=== PATIENT | male | born 1950 | race Two or more races ===

== ENCOUNTER 2020-10-22 11:22 | Emergency (ER) | payer MEDICARE, OTHER ==
[~2020-10-22] VITALS: Ht 172.7 cm; Wt 72.1 kg
--- NOTE | 2020-10-22 11:22 | NUR ---
PT BIB , DIZZINESS, NAUSEA STARTED ONE HOUR AGO. PT IS AAOX4, NOT IN RESPIRATORY DISTRESS, V/S STABLE, KEPT RESTED AND COMFORTABLE. WILL CONTINUE TO MONITOR.
--- NOTE | 2020-10-22 11:31 | NUR ---
SEEN AND EXAMINED BY .
[2020-10-22] MEDS ORDERED: ONDANSETRON HCL/PF 4 MG/2 ML VIAL ONE (11:37)
[2020-10-22] MEDS ORDERED: MECLIZINE HCL 25 MG TABLET ONE (11:37)
--- NOTE | 2020-10-22 11:40 | NUR ---
IV LINE ESTABLISHED BLOOD DRAWN AND SENT TO LAB.
[2020-10-22] MEDS: IV NS 0.9% 1,000 ML IV ONE (11:53)
[2020-10-22] MEDS: MECLIZINE HCL 12.5 MG TABLET PO ONE (11:54)
[2020-10-22] MEDS: ONDANSETRON HCL/PF 4 MG/2 ML VIAL IV ONE (11:54)
--- NOTE | 2020-10-22 12:13 | NUR ---
PT IS WHEELED TO CT SCAN VIA [facility].
[2020-10-22 12:38] LABS: BASOPHILS % (AUTO) 0.5 % (0.0-2.0); EOSINOPHILS % (AUTO) 2.1 % (0.0-6.0); HEMATOCRIT 42 % (39-51); HEMOGLOBIN 14.4 g/dL (13.5-17.5); LYMPHOCYTES # (AUTO) 3.3 /CMM (0.8-4.8); LYMPHOCYTES % (AUTO) 47.2 % (20.0-44.0); MEAN CORPUSCULAR HGB CONC 34 g/dl (31.0-36.0); MEAN CORPUSCULAR VOLUME 90 fL (80-96); MONOCYTES # (AUTO) 0.5 /CMM (0.1-1.30); MONOCYTES % (AUTO) 7.7 % (2.0-12.0); NEUTROPHILS % (AUTO) 42.5 % (43.0-81.0); PLATELET COUNT (AUTO) 247 /CMM (150-450); RED BLOOD CELL COUNT(AUTO) 4.68 MIL/uL (4.5-6.0); WHITE BLOOD COUNT (AUTO) 6.9 K/uL (4.3-11.0)
[2020-10-22 12:54] LABS: ALANINE AMINOTRANSFERASE 19 U/L (12-78); ALBUMIN 4.4 g/dL (3.4-5.0); ALKALINE PHOSPHATASE 88 U/L (46-116); ASPARTATE AMINOTRANSFERASE 15 U/L (15-37); BILIRUBIN,TOTAL 0.6 mg/dL (0.2-1.0); CALCIUM, SERUM 9.6 mg/dL (8.5-10.1); CARBON DIOXIDE 27 mmol/L (21-32); CHLORIDE 102 mmol/L (98-107); GLUCOSE 154 mg/dL (74-106); LIPASE 60 U/L (73-393); POTASSIUM 3.9 mmol/L (3.5-5.1); SODIUM SERUM 142 mmol/L (136-145); TOTAL PROTEIN, SERUM 8.3 g/dL (6.4-8.2); UREA NITROGEN, BLOOD 16 mg/dL (7-18)
[2020-10-22] MEDS ORDERED: ONDA4TAB5 PO (14:03)
[2020-10-22] MEDS ORDERED: MECL-159 PO (14:03)
[2020-10-22 14:10] VITALS: BP 133/78
--- NOTE | 2020-10-22 14:10 | NUR ---
IV removed. Catheter intact and site benign. Pressure and 4x4 applied to site. No bleeding noted. Patient discharged to home in stable condition. Written and verbal after care instructions given. Patient verbalizes understanding of instruction.
== END 2020-10-22 14:11 | disposition home or self-care (01) ==
LOC: ER 11:22
DX: R42 Dizziness and giddiness (principal); R11.2 Nausea with vomiting, unspecified; I10 Essential (primary) hypertension; I25.10 Atherosclerotic heart disease of native coronary artery without angina pectoris; Z95.818 Presence of other cardiac implants and grafts
CPT/HCPCS: 36415; 70450; 80053; 83690; 84484; 85025; 93005; 96361; 96374; 99285; J2405; J7030; J8597

== ENCOUNTER 2021-10-17 10:56 | Emergency (ER) | payer MEDICARE, OTHER ==
[~2021-10-17] VITALS: Ht 167.6 cm; Wt 77.1 kg
[~2021-10-17 10:56] MED LIST: MECL-159 PO; ONDA4TAB5 PO
--- NOTE | 2021-10-17 11:09 | NUR ---
BIB FAMILY C/P BACK PAIN X3 DAYS, BECAME WORSE TODAY. PT DENIES HAVING ANY INJURY. VITALS ARE WITHIN NORMAL LIMITS. AWAITING MD CAI.
[2021-10-17] MEDS ORDERED: KETOROLAC TROMETHAMINE 15 MG/ML VIAL ONE (11:44)
[2021-10-17] MEDS ORDERED: ACETAMINOPHEN ES 500 MG TABLET ONE (11:45)
[2021-10-17] MEDS ORDERED: KETOROLAC TROMETHAMINE INJ 30 MG/ML VIAL IM ONE (12:00)
[2021-10-17] MEDS ORDERED: ACETAMINOPHEN ES 500 MG TABLET PO ONE (12:00)
--- NOTE | 2021-10-17 12:32 | NUR ---
PT BACK FROM X RAY VIA WHEELCHAIR
[2021-10-17 13:20] VITALS: BP 127/62
--- NOTE | 2021-10-17 13:20 | NUR ---
Patient discharged to home in stable condition. Written and verbal after care instructions given. Patient verbalizes understanding of instruction.
== END 2021-10-17 13:21 | disposition home or self-care (01) ==
LOC: ER 10:56
DX: M54.41 Lumbago with sciatica, right side (principal); I10 Essential (primary) hypertension; Z79.899 Other long term (current) drug therapy
CPT/HCPCS: 72110; 96372; 99283; J1885

== ENCOUNTER 2023-03-12 07:07 | Inpatient (IN) | payer MEDICARE, OTHER ==
[~2023-03-12] VITALS: Ht 172.7 cm; Wt 66.7 kg
[2023-03-12 07:44] LABS: BASOPHILS % (AUTO) 0.3 % (0.0-2.0); EOSINOPHILS # (AUTO) 0.1 K/uL (0.0-0.7); EOSINOPHILS % (AUTO) 1.2 % (0.0-6.0); HEMATOCRIT 40 % (39-51); HEMOGLOBIN 13.4 g/dL (13.5-17.5); LYMPHOCYTES # (AUTO) 1.6 K/uL (0.8-4.8); LYMPHOCYTES % (AUTO) 23.6 % (20.0-44.0); MEAN CORPUSCULAR HEMOGLOBIN 31 PG (26.0-33.0); MEAN CORPUSCULAR HGB CONC 34 g/dl (31.0-36.0); MEAN CORPUSCULAR VOLUME 91 fL (80-96); MONOCYTES # (AUTO) 0.6 K/uL (0.1-1.30); MONOCYTES % (AUTO) 8.8 % (2.0-12.0); NEUTROPHILS # (AUTO) 4.5 K/uL (1.8-8.9); NEUTROPHILS % (AUTO) 66.1 % (43.0-81.0); PLATELET COUNT (AUTO) 234 K/uL (150-450); RED BLOOD CELL COUNT(AUTO) 4.32 MIL/uL (4.5-6.0); WHITE BLOOD COUNT (AUTO) 6.8 K/uL (4.3-11.0)
[2023-03-12] MEDS ORDERED: HYDROCODONE/APAP 5/325MG TABLET ONE ×2 (07:46→10:57)
[2023-03-12] MEDS ORDERED: HYDROCODONE/APAP 5/325MG TABLET PO ONE ×2 (08:00→11:00)
[2023-03-12 08:01] LABS: INR 1.1 (0.91-1.10); PARTIAL THROMBOPLASTIN TIME 25.6 SEC (24.3-34.3); PROTHROMBIN TIME 11.6 SECS (9.2-11.1)
[2023-03-12 08:22] LABS: ALANINE AMINOTRANSFERASE 13 U/L (12-78); ALBUMIN 3.9 g/dL (3.4-5.0); ALKALINE PHOSPHATASE 65 U/L (46-116); ASPARTATE AMINOTRANSFERASE 15 U/L (15-37); BILIRUBIN,DIRECT 0.2 mg/dL (0.0-0.2); BILIRUBIN,TOTAL 0.8 mg/dL (0.2-1.0); CALCIUM, SERUM 9.2 mg/dL (8.5-10.1); CARBON DIOXIDE 25 mmol/L (21-32); CHLORIDE 103 mmol/L (98-107); CREATININE 0.9 mg/dL (0.6-1.3); GLUCOSE 140 mg/dL (74-106); POTASSIUM 3.6 mmol/L (3.5-5.1); SODIUM SERUM 138 mmol/L (136-145); TOTAL PROTEIN, SERUM 7.4 g/dL (6.4-8.2); UREA NITROGEN, BLOOD 15 mg/dL (7-18)
[2023-03-12 08:39] LABS: APPEARANCE,URINE CLEAR (CLEAR); BILIRUBIN,URINE NEGATIVE (NEGATIVE); BLOOD, URINE NEGATIVE Ery/uL (NEGATIVE); COLOR,URINE YELLOW (YELLOW); KETONES,URINE NEGATIVE (NEGATIVE); LEUKOCYTE ESTERASE ,URINE NEGATIVE (NEGATIVE); NITRITE, URINE NEGATIVE (NEGATIVE); PH,URINE 6.5 (5.0-8.0); PROTEIN,URINE NEGATIVE (NEGATIVE); UGLUCOSE NEGATIVE (NEGATIVE); UROBILINOGEN,URINE 0.2 EU/dL (0.2)
[2023-03-12] MEDS ORDERED: ASPI-1420 PO (09:23)
[2023-03-12] MEDS ORDERED: CARV3.122 PO (09:23)
[2023-03-12] MEDS ORDERED: BENA40TA8 PO (09:23)
[2023-03-12] MEDS ORDERED: ATOR20TA PO (09:23)
[2023-03-12] MEDS ORDERED: CARB1TAB21 PO (09:23)
[2023-03-12] MEDS ORDERED: LIFI1DRO4 EACHEYE (09:23)
[2023-03-12] MEDS ORDERED: GABA-532 PO (09:23)
[2023-03-12] MEDS ORDERED: OMEG1CAP PO (09:23)
[2023-03-12] MEDS ORDERED: AMLO5TAB4 PO (09:23)
[2023-03-12] MEDS ORDERED: CYAN100T9 PO (09:23)
[2023-03-12 12:00] VITALS: BP 121/73; TEMP 97.7; O2SAT 95
[2023-03-12] MEDS ORDERED: ONDANSETRON HCL/PF 4 MG/2 ML VIAL IVP PRN (13:30)
[2023-03-12] MEDS: ACETAMINOPHEN 325 MG TABLET PO PRN (13:52)
[2023-03-12] MEDS: CARBIDOPA/LEVODOPA 25/100 MG 1 UDTAB PO SCH ×2 (13:58→16:28)
[2023-03-12] MEDS: ENOXAPARIN SODIUM 40 MG/0.4 ML DISP.SYRIN SQ SCH (13:58)
[2023-03-12] MEDS: LIDOCAINE 5% (PATCH) 1 EA PATCH TP SCH (14:21)
[2023-03-12 16:00] VITALS: BP 128/66; TEMP 98.7; O2SAT 98
[2023-03-12] MEDS: CARVEDILOL 3.125 MG TABLET PO SCH (16:28)
[2023-03-12] MEDS: POLYVINYL ALCOHOL 15 ML BOTTLE EACHEYE SCH (16:32)
[2023-03-12] MEDS ORDERED: GABAPENTIN 300 MG CAPSULE PO ONE (19:30)
[2023-03-12 20:00] VITALS: BP 126/61; TEMP 97.5; O2SAT 97
[2023-03-12] MEDS ORDERED: GABAPENTIN 100 MG CAPSULE PO SCH (22:00)
[2023-03-12] MEDS ORDERED: ATORVASTATIN 10 MG TABLET PO SCH (22:00)
[2023-03-12] MEDS ORDERED: ZOLPIDEM TARTRATE 5 MG TABLET PO PRN (22:00)
[2023-03-13] VITALS: BP 137/69; TEMP 98.3; O2SAT 97
[2023-03-13 04:00] VITALS: BP 128/67; TEMP 98.1; O2SAT 96
[2023-03-13 06:31] LABS: CALCIUM, SERUM 9.4 mg/dL (8.5-10.1); CARBON DIOXIDE 26 mmol/L (21-32); CHLORIDE 103 mmol/L (98-107); CHOLESTEROL 134 mg/dL (<200); CREATININE 0.8 mg/dL (0.6-1.3); GLUCOSE 98 mg/dL (74-106); HDL CHOLESTEROL 54 mg/dL (40-60); LDL 72 mg/dL (0-99); MAGNESIUM 2.2 mg/dL (1.8-2.4); PHOSPHORUS 3.6 mg/dL (2.5-4.9); POTASSIUM 3.8 mmol/L (3.5-5.1); SODIUM SERUM 138 mmol/L (136-145); TRIGLYCERIDES 76 mg/dL (30-150); UREA NITROGEN, BLOOD 16 mg/dL (7-18)
[2023-03-13 06:34] LABS: BASOPHILS % (AUTO) 0.4 % (0.0-2.0); EOSINOPHILS # (AUTO) 0.1 K/uL (0.0-0.7); EOSINOPHILS % (AUTO) 1.5 % (0.0-6.0); HEMATOCRIT 41 % (39-51); HEMOGLOBIN 13.7 g/dL (13.5-17.5); LYMPHOCYTES # (AUTO) 2.4 K/uL (0.8-4.8); LYMPHOCYTES % (AUTO) 39.5 % (20.0-44.0); MEAN CORPUSCULAR HEMOGLOBIN 31 PG (26.0-33.0); MEAN CORPUSCULAR HGB CONC 34 g/dl (31.0-36.0); MEAN CORPUSCULAR VOLUME 91 fL (80-96); MONOCYTES # (AUTO) 0.7 K/uL (0.1-1.30); NEUTROPHILS # (AUTO) 2.9 K/uL (1.8-8.9); NEUTROPHILS % (AUTO) 46.6 % (43.0-81.0); PLATELET COUNT (AUTO) 221 K/uL (150-450); RED BLOOD CELL COUNT(AUTO) 4.44 MIL/uL (4.5-6.0); RED CELL DISTRIBUTION WIDTH 13.2 % (11.5-15.0); WHITE BLOOD COUNT (AUTO) 6.2 K/uL (4.3-11.0)
[2023-03-13] MEDS: ACETAMINOPHEN 325 MG TABLET PO PRN (07:54)
[2023-03-13 08:00] VITALS: BP 145/69; TEMP 98.1; O2SAT 99
[2023-03-13] MEDS: POLYVINYL ALCOHOL 15 ML BOTTLE EACHEYE SCH ×2 (08:25→17:10)
[2023-03-13] MEDS: CARVEDILOL 3.125 MG TABLET PO SCH ×2 (08:26→17:11)
[2023-03-13] MEDS: CARBIDOPA/LEVODOPA 25/100 MG 1 UDTAB PO SCH ×3 (08:27→17:11)
[2023-03-13] MEDS ORDERED: BENAZEPRIL HCL 20 MG TABLET PO SCH (09:00)
[2023-03-13] MEDS ORDERED: AMLODIPINE BESYLATE 5 MG TABLET PO SCH (09:00)
[2023-03-13] MEDS ORDERED: Medication Not On Formulary EA (Omega-3 Fatty Acids/Fish Oil (Fish Oil 1,000 Mg Capsule) PO SCH (09:00)
[2023-03-13] MEDS ORDERED: ASPIRIN EC 81 MG TABLET.DR PO SCH (09:00)
[2023-03-13] MEDS ORDERED: CYANOCOBALAMIN 500 MCG TABLET PO SCH (09:00)
[2023-03-13] MEDS ORDERED: MORPHINE SULFATE INJ 2 MG/ML DISP.SYRIN IV PRN (10:30)
[2023-03-13 11:00] VITALS: BP_SYST 129; BP_SYST 134; BP_SYST 140; BP_DIAS 61; BP_DIAS 66; O2SAT 99
[2023-03-13] MEDS ORDERED: GABA100C PO (12:26)
[2023-03-13] MEDS ORDERED: GABA300C PO (12:26)
[2023-03-13] MEDS: GABAPENTIN 100 MG CAPSULE PO SCH ×2 (13:03→17:11)
[2023-03-13] MEDS: ENOXAPARIN SODIUM 40 MG/0.4 ML DISP.SYRIN SQ SCH (14:17)
[2023-03-13] MEDS: LIDOCAINE 5% (PATCH) 1 EA PATCH TP SCH (14:20)
[2023-03-13 16:00] VITALS: BP 123/63; TEMP 97.9; O2SAT 96
[2023-03-13 17:11] VITALS: BP 123/63
[2023-03-13] MEDS ORDERED: GABAPENTIN 300 MG CAPSULE PO SCH (22:00)
== END 2023-03-13 21:13 | disposition home health service (06) | DRG 74 ==
LOC: ER 07:09 → TELE 11:48
PROVIDERS: ADMIT Nurse Practitioner Acute Care; ATTEND Nurse Practitioner Acute Care
DX: E11.41 Type 2 diabetes mellitus with diabetic mononeuropathy (principal); G20.A1 Parkinson's disease without dyskinesia, without mention of fluctuations; I10 Essential (primary) hypertension; Z95.1 Presence of aortocoronary bypass graft; I25.10 Atherosclerotic heart disease of native coronary artery without angina pectoris; Z79.82 Long term (current) use of aspirin; Z79.899 Other long term (current) drug therapy; G89.29 Other chronic pain; G25.81 Restless legs syndrome
CPT/HCPCS: 36415; 70450-TC; 71045-TC; 80048-TC; 80061-TC; 80076-TC; 82607-TC; 83735-TC; 83921; 84100-TC; 84484-TC; 85025-TC; 85730-TC; 93307-TC; 97112-TC; 97116-TC; 97530-TC; G0378; J1650; J2270

== ENCOUNTER 2024-03-14 11:45 | Emergency (ER) | payer MEDICARE, OTHER ==
[~2024-03-14] VITALS: Ht 170.2 cm; Wt 68.0 kg
[~2024-03-14 11:45] MED LIST changes: +AMLO5TAB4 PO; +ASPI-1420 PO; +ATOR20TA PO; +BENA40TA8 PO; +CARB1TAB21 PO; +CARV3.122 PO; +CYAN100T9 PO; +GABA100C PO; +GABA300C PO; +LIFI1DRO4 EACHEYE; -MECL-159 PO; +OMEG1CAP PO; -ONDA4TAB5 PO
[2024-03-14 13:20] LABS: BASOPHILS % (AUTO) 0.4 % (0.0-2.0); EOSINOPHILS # (AUTO) 0.1 K/uL (0.0-0.7); HEMATOCRIT 43 % (39-51); LYMPHOCYTES # (AUTO) 2.5 K/uL (0.8-4.8); LYMPHOCYTES % (AUTO) 38.1 % (20.0-44.0); MEAN CORPUSCULAR HEMOGLOBIN 32 PG (26.0-33.0); MEAN CORPUSCULAR HGB CONC 35 g/dl (31.0-36.0); MEAN CORPUSCULAR VOLUME 91 fL (80-96); MONOCYTES # (AUTO) 0.5 K/uL (0.1-1.30); MONOCYTES % (AUTO) 7.7 % (2.0-12.0); NEUTROPHILS # (AUTO) 3.4 K/uL (1.8-8.9); NEUTROPHILS % (AUTO) 51.8 % (43.0-81.0); PLATELET COUNT (AUTO) 219 K/uL (150-450); RED CELL DISTRIBUTION WIDTH 13.5 % (11.5-15.0); WHITE BLOOD COUNT (AUTO) 6.6 K/uL (4.3-11.0)
[2024-03-14 13:21] LABS: CALCIUM, SERUM 9.4 mg/dL (8.5-10.1); CARBON DIOXIDE 31 mmol/L (21-32); CHLORIDE 105 mmol/L (98-107); CREATININE 0.8 mg/dL (0.6-1.3); GLUCOSE 134 mg/dL (74-106); POTASSIUM 3.9 mmol/L (3.5-5.1); SODIUM SERUM 143 mmol/L (136-145); UREA NITROGEN, BLOOD 11 mg/dL (7-18)
[2024-03-14] MEDS ORDERED: CLONIDINE HCL 0.1 MG TABLET ONE (13:41)
[2024-03-14] MEDS: CLONIDINE HCL 0.1 MG TABLET PO ONE (13:45)
[2024-03-14] MEDS ORDERED: NIFE60TA2 PO (15:48)
[2024-03-14 16:07] VITALS: BP 132/68; TEMP 97.6; O2SAT 99
== END 2024-03-14 16:08 | disposition home or self-care (01) ==
LOC: ER 11:49
DX: I10 Essential (primary) hypertension (principal); R51.9 Headache, unspecified; G20.A1 Parkinson's disease without dyskinesia, without mention of fluctuations; Z79.899 Other long term (current) drug therapy; Z79.82 Long term (current) use of aspirin; Z95.1 Presence of aortocoronary bypass graft; Z86.79 Personal history of other diseases of the circulatory system
CPT/HCPCS: 36415; 70450-TC; 71045-TC; 80048-TC; 84484-TC; 85025-TC